=== PATIENT | male | born 1975 | race Two or more races ===

== ENCOUNTER 2018-04-09 23:23 | Emergency (ER) | payer BC ==
[~2018-04-09] VITALS: Ht 172.7 cm; Wt 89.8 kg
--- NOTE | 2018-04-09 23:35 | NUR ---
BIBLA, C/O "TOOK SOME ADDERALL AND DRANK AT A BAR" AOX4. -DIZZINESS. -N/V -SOB. -ACUTE DISTRESS.
--- NOTE | 2018-04-10 02:00 | NUR ---
Patient is resting comfortably in bed with eyes closed. Easily aroused. VSS
[2018-04-10 03:00] LABS: BASOPHILS # (AUTO) 0.1 /CMM (0.0-0.2); BASOPHILS % (AUTO) 0.9 % (0.0-2.0); EOSINOPHILS % (AUTO) 0.4 % (0.0-6.0); HEMATOCRIT 42 % (39-51); HEMOGLOBIN 14.4 g/dL (13.5-17.5); LYMPHOCYTES # (AUTO) 2.2 /CMM (0.8-4.8); LYMPHOCYTES % (AUTO) 34.1 % (20.0-44.0); MEAN CORPUSCULAR HGB CONC 35 g/dl (31.0-36.0); MEAN CORPUSCULAR VOLUME 88 fL (80-96); MONOCYTES # (AUTO) 0.4 /CMM (0.1-1.30); MONOCYTES % (AUTO) 6.6 % (2.0-12.0); NEUTROPHILS # (AUTO) 3.7 /CMM (1.8-8.9); PLATELET COUNT (AUTO) 220 /CMM (150-450); RED BLOOD CELL COUNT(AUTO) 4.71 MIL/uL (4.5-6.0); WHITE BLOOD COUNT (AUTO) 6.3 K/uL (4.3-11.0)
[2018-04-10 03:14] LABS: ALBUMIN 3.5 g/dL (3.4-5.0); BILIRUBIN,DIRECT 0.1 mg/dL (0.0-0.2); BILIRUBIN,TOTAL 0.5 mg/dL (0.2-1.0); CREATININE 1.3 mg/dL (0.6-1.3); TOTAL PROTEIN, SERUM 7.2 g/dL (6.4-8.2)
[2018-04-10 03:16] LABS: SALICYLATE 0.9 mg/dL (2.8-20.0)
[2018-04-10 03:40] LABS: APPEARANCE,URINE CLEAR (CLEAR); BILIRUBIN,URINE NEGATIVE (NEGATIVE); BLOOD, URINE NEGATIVE Ery/uL (NEGATIVE); COLOR,URINE YELLOW (YELLOW); LEUKOCYTE ESTERASE ,URINE NEGATIVE (NEGATIVE); NITRITE, URINE NEGATIVE (NEGATIVE); PH,URINE 6.5 (5.0-8.0); PROTEIN,URINE NEGATIVE (NEGATIVE); UGLUCOSE NEGATIVE (NEGATIVE); UROBILINOGEN,URINE 0.2 EU/dL (0.2)
--- NOTE | 2018-04-10 03:51 | NUR ---
Patient is resting comfortably in bed with eyes closed. Easily aroused. VSS
[2018-04-10 03:54] LABS: KETONES,URINE NEGATIVE (NEGATIVE)
--- NOTE | 2018-04-10 04:33 | NUR ---
Patient is resting comfortably in bed with eyes closed. Easily aroused. VSS
--- NOTE | 2018-04-10 06:13 | NUR ---
Patient is resting comfortably in bed with eyes closed. Easily aroused. VSS
--- NOTE | 2018-04-10 07:03 | NUR ---
Patient is resting comfortably in bed with eyes closed. Easily aroused. VSS
--- NOTE | 2018-04-10 07:16 | NUR ---
received report from Mica GARZON. Patient asleep, in no apparent distress noted.
--- NOTE | 2018-04-10 10:29 | NUR ---
CALLED SONAM RN/CRULLER MAKERCLAUDIA IN 1HR. PRIMARY NURSE AWARE.
[2018-04-10] MEDS ORDERED: FLUO-120 PO (11:24)
[2018-04-10] MEDS ORDERED: AMPH20CA3 PO (11:24)
[2018-04-10 12:45] VITALS: BP 135/88
--- NOTE | 2018-04-10 12:46 | NUR ---
Patient discharged to home in stable condition. Written and verbal after care instructions given. Patient verbalizes understanding of instruction. patient was seen by Alicia ATKINSON and patient cleard by MD for discharge. in no apparent distress noted. Patient not a homeless, per patient he has an apartment.
== END 2018-04-10 12:45 | disposition home or self-care (01) ==
LOC: ER 23:25
DX: F60.0 Paranoid personality disorder (principal); F22 Delusional disorders; F19.10 Other psychoactive substance abuse, uncomplicated; F32.9 Major depressive disorder, single episode, unspecified; F98.8 Other specified behavioral and emotional disorders with onset usually occurring in childhood and adolescence; Z98.890 Other specified postprocedural states
CPT/HCPCS: 36415; 80048-TC; 80076-TC; 80305; 81000-TC; 85025-TC; G0480

== ENCOUNTER 2021-05-19 20:29 | Emergency (ER) | payer OTHER ==
[~2021-05-19] VITALS: Ht 172.7 cm; Wt 76.2 kg
[~2021-05-19 20:29] MED LIST: AMPH20CA3 PO; FLUO20CA42 PO
--- NOTE | 2021-05-19 20:45 | NUR ---
TO ER BED 3. C/O R SIDED "SPASM/WEAKNESS" ON FACE, ARM, ABDOMEN, LEG AND FOOT PROGRESSIVELY GETTING WORSE FOR 2 YEARS. PT STATES TODAY IS THE WORSE. PT DENIES ANY CHEST PAIN OR SOB. PT CONNECTED TO MONITOR. AWAITNG MD HERRERA
[2021-05-19] MEDS ORDERED: CARISOPRODOL 350 MG TABLET PO ONE (21:00)
[2021-05-19] MEDS ORDERED: CARISOPRODOL 350 MG TABLET ONE (21:04)
--- NOTE | 2021-05-19 21:24 | NUR ---
PT TAKEN FOR CT SCAN
[2021-05-20] MEDS ORDERED: ONDA4TAB5 PO (01:00)
[2021-05-20] MEDS ORDERED: TAMS-12 PO (01:00)
[2021-05-20] MEDS ORDERED: IBUP-1953 PO (01:00)
[2021-05-20 02:22] LABS: BASOPHILS # (AUTO) 0.1 K/uL (0.0-0.2); BASOPHILS % (AUTO) 0.9 % (0.0-2.0); EOSINOPHILS % (AUTO) 0.1 % (0.0-6.0); HEMATOCRIT 42 % (39-51); HEMOGLOBIN 14.2 g/dL (13.5-17.5); LYMPHOCYTES # (AUTO) 1.9 K/uL (0.8-4.8); LYMPHOCYTES % (AUTO) 22.8 % (20.0-44.0); MEAN CORPUSCULAR HGB CONC 34 g/dl (31.0-36.0); MEAN CORPUSCULAR VOLUME 88 fL (80-96); MONOCYTES # (AUTO) 0.4 K/uL (0.1-1.30); MONOCYTES % (AUTO) 5.4 % (2.0-12.0); NEUTROPHILS # (AUTO) 5.9 K/uL (1.8-8.9); NEUTROPHILS % (AUTO) 70.8 % (43.0-81.0); PLATELET COUNT (AUTO) 215 K/uL (150-450); RED BLOOD CELL COUNT(AUTO) 4.77 MIL/uL (4.5-6.0); WHITE BLOOD COUNT (AUTO) 8.3 K/uL (4.3-11.0)
[2021-05-20 02:24] LABS: BILIRUBIN,URINE NEGATIVE (NEGATIVE); COLOR,URINE YELLOW (YELLOW); LEUKOCYTE ESTERASE ,URINE NEGATIVE (NEGATIVE); NITRITE, URINE NEGATIVE (NEGATIVE); PROTEIN,URINE NEGATIVE (NEGATIVE); UGLUCOSE NEGATIVE (NEGATIVE); UROBILINOGEN,URINE 0.2 EU/dL (0.2)
[2021-05-20] MEDS ORDERED: IV NS 0.9% 1,000 ML IV ONE (02:30)
[2021-05-20 02:36] LABS: CALCIUM, SERUM 9.2 mg/dL (8.5-10.1); CREATININE 1.2 mg/dL (0.6-1.3); POTASSIUM 4.3 mmol/L (3.5-5.1)
--- NOTE | 2021-05-20 03:04 | NUR ---
AT BED SIDE
--- NOTE | 2021-05-20 03:25 | NUR ---
Patient discharged to home in stable condition. Written and verbal after care instructions given. Patient verbalizes understanding of instruction.
[2021-05-20 03:30] VITALS: BP 120/70
== END 2021-05-20 03:31 | disposition home or self-care (01) ==
LOC: ER 20:31
DX: G62.9 Polyneuropathy, unspecified (principal); F32.A Depression, unspecified; Z79.899 Other long term (current) drug therapy
CPT/HCPCS: 36415; 74176; 80048; 81003; 82550; 85025; 96360; 99284; J7030